=== PATIENT | female | born 1980 | race African-American/Black ===

== ENCOUNTER → 2022-12-06 | Outpatient (CLI) | payer SELFPAY ==
[~2022-12-06] MED LIST: LIDOCAINE HCL 1% LOCAL INJ 20 ML VIAL ONE
== END ==
LOC: US 09:40
PROVIDERS: ATTEND Otolaryngology
DX: E04.2 Nontoxic multinodular goiter (principal)
CPT/HCPCS: 10005; 88172; 88173; 88300; J2001